=== PATIENT | male | born 1990 | race Caucasian/White ===

== ENCOUNTER 2023-05-16 22:35 | Emergency (ER) | payer SELFPAY ==
[2023-05-16 22:40] VITALS: BP 144/90; PULSE 106; RESP 18; TEMP 97.7
[2023-05-16] MEDS ORDERED: TOPICAL SKIN ADHESIVE 1 EACH AMP TOPICAL ONE (22:41)
--- NOTE | 2023-05-16 22:51 | ED ---
General Adult HPI - General Chief complaint: Medical Clearance Stated complaint: Etoh Time Seen by Provider: 05/16/23 22:42 Source: patient, EMS Mode of arrival: ambulatory Limitations: no limitations - History of Present Illness Initial comments: This is a 32-year-old male that was brought in by police for medical clearance for incarceration. The patient reportedly was intoxicated and was hitting his head against the police car window. The patient suffered a laceration to the superior midline aspect of the forehead and had bleeding from it which prompted police to come to the emergency department for medical clearance. The patient reportedly did not lose consciousness and he did state that he did not have any acute pain but was intoxicated. The patient denied any other acute pain or complaints at this time. The patient was handcuffed by police on arrival. - Related Data Allergies Allergy/AdvReac Type Severity Reaction Status Date / Time Latex, Natural Rubber AdvReac Unknown Verified 05/16/23 22:41 Review of Systems ROS Statement: Those systems with pertinent positive or pertinent negative responses have been documented in the HPI. ROS Other: All systems not noted in ROS Statement are negative. Past Medical History Past Medical History: Unable to Obtain History of Any Multi-Drug Resistant Organisms: Unobtainable Past Surgical History: Unable to Obtain Past Psychological History: Depression, PTSD Smoking Status: Unknown if ever smoked Past Alcohol Use History: Unable to Obtain Past Drug Use History: Unable to Obtain General Exam Limitations: no limitations General appearance: alert, in no apparent distress, appears intoxicated Head exam: Present: normocephalic, other (3 cm linear laceration to the superio midline forehead) Eye exam: Present: normal appearance, PERRL Pupils: Present: normal accommodation ENT exam: Present: normal exam, normal oropharynx, mucous membranes moist Neck exam: Present: normal inspection, full ROM Respiratory exam: Present: normal lung sounds bilaterally Cardiovascular Exam: Present: regular rate, normal rhythm, normal heart sounds GI/Abdominal exam: Present: soft, normal bowel sounds Extremities exam: Present: normal inspection, full ROM Back exam: Present: normal inspection, full ROM Neurological exam: Present: alert, oriented X3, CN II-XII intact Psychiatric exam: Present: normal affect, normal mood Skin exam: Present: warm, dry Course Vital Signs 05/16/23 22:38 Temperature 97.7 F Pulse Rate 106 H Respiratory 18 Rate Blood Pressure 144/90 O2 Sat by Pulse 99 Oximetry Procedures - Laceration Laceration #1 Consent Obtained: verbal consent Indication: laceration Site: face Size (cm): 3 Description: linear Depth: simple, single layer Pre-repair: irrigated extensively Technique: other (Exofin) Patient Tolerated Procedure: well Medical Decision Making - Medical Decision Making Was pt. sent in by a medical professional or institution (, [facility], [employer], urgent care, hospital, or shelter...) When possible be specific @ -No Did you speak to anyone other than the patient for history (EMS, parent, family, police, friend...)? What history was obtained from this source @ -Yes, police who stated the patient was intoxicated and needed medical clearance for incarceration. Did you review nursing and triage notes (agree or disagree)? Why? @ -I reviewed and agree with nursing and triage notes Were old charts reviewed (outside hosp., previous admission, EMS record, old EKG, old radiological studies, urgent care reports/EKG's, shelter records)? Report findings @ -No old charts were reviewed Differential Diagnosis (chest pain, altered mental status, abdominal pain women, abdominal pain men, vaginal bleeding, weakness, fever, dyspnea, syncope, headache, dizziness, GI bleed, back pain, seizure, CVA, palpatations, mental health)? @ -Intoxication, forehead laceration, contusion EKG interpreted by me (3pts min.). @ -None X-rays interpreted by me (1pt min.). @ -None done CT interpreted by me (1pt min.). @ -None done U/S interpreted by me (1pt. min.). @ -None done What testing was considered but not performed or refused? (CT, X-rays, U/S, labs)? Why? @ -Computed tomography scan was considered however the patient did not lose consciousness and had minor head trauma without any other symptoms noted. What meds were considered but not given or refused? Why? @ -None Did you discuss the management of the patient with other professionals (professionals i.e. KATY Li, [employer], lab, RT, psych nurse, health and social care teacher, emergency spill response technician, teacher, mobile patrol officer, caser)? Give summary @ -No Was smoking cessation discussed for >3mins.? @ -Yes Was critical care preformed (if so, how long)? @ -No Were there social determinants of health that impacted care today? How? (Homelessness, low income, unemployed, alcoholism, drug addiction, transportation, low edu. Level, literacy, decrease access to med. care, residential, rehab)? @ -No Was there de-escalation of care discussed even if they declined (Discuss DNR or withdrawal of care, Hospice)? DNR status @ -No What co-morbidities impacted this encounter? (DM, HTN, Smoking, COPD, CAD, Cancer, CVA, ARF, Chemo, Hep., AIDS, mental health diagnosis, sleep apnea, morbid obesity)? @ -None Was patient admitted / discharged? Hospital course, mention meds given and route, prescriptions, significant lab abnormalities, going to OR and other pertinent info. @ -The patient was seen and evaluated emergency department. Physical exam, the patient was intoxicated however was cooperative to the medical staff. Vital signs admission were stable. The patient did have a laceration that was repaired with access in and didn't have any further acute pain or complaints therefore was medically cleared for incarceration at this time. The crime prevention police officer that was with the patient was told of this and was agreeable to take the patient back to residential. The patient was discharged in police custody in stable condition. Undiagnosed new problem with uncertain prognosis? @ -No Drug Therapy requiring intensive monitoring for toxicity (Heparin, Nitro, Insulin, Cardizem)? @ -No Were any procedures done? @ -No Diagnosis/symptom? @ -Forehead laceration, medical clearance for incarceration Acute, or Chronic, or Acute on Chronic? @ -Acute Uncomplicated (without systemic symptoms) or Complicated (systemic symptoms)? @ -Uncomplicated Side effects of treatment? @ -No Exacerbation, Progression, or Severe Exacerbation? @ -No Poses a threat to life or bodily function? How? (Chest pain, [place], [place], pneumonia, PE, COPD, DKA, ARF, appy, cholecystitis, CVA, Diverticulitis, Homicidal, Suicidal, threat to staff... and all critical care pts) @ -No Disposition Clinical Impression: Medical clearance for incarceration, Forehead laceration Disposition: HOME SELF-CARE Condition: Stable Instructions (If sedation given, give patient instructions): Normal Exam (ED), Head Laceration (ED) Is patient prescribed a controlled substance at d/c from ED?: No Referrals: None,Stated [Primary Care Provider] - 1-2 days Time of Disposition: 22:50
== END 2023-05-16 22:59 | disposition home or self-care (01) ==
LOC: EC 22:35
DX: S01.81XA Laceration without foreign body of other part of head, initial encounter (principal); Z02.89 Encounter for other administrative examinations; Z91.040 Latex allergy status; Z86.59 Personal history of other mental and behavioral disorders; W22.8XXA Striking against or struck by other objects, initial encounter
CPT/HCPCS: 99282